=== PATIENT | male | born 1985 | race Caucasian/White ===

== ENCOUNTER → 2018-12-09 | Outpatient (CLI) | payer OTHER ==
--- NOTE | 2018-12-09 10:27 | XR ---
Right hand HISTORY: Trauma, pain 3 views of the right hand Bone mineralization, joint spaces and alignment are maintained. IMPRESSION: No fracture or dislocation is evident.
== END | disposition home or self-care (01) ==
LOC: RADXRMAIN 10:01
PROVIDERS: ATTEND Emergency Medicine
DX: S63.91XD Sprain of unspecified part of right wrist and hand, subsequent encounter (principal)

== ENCOUNTER → 2019-01-24 | Outpatient (CLI) | payer OTHER ==
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
== END | disposition home or self-care (01) ==
LOC: RADXRMAIN 17:17
PROVIDERS: ATTEND Emergency Medicine
DX: M79.641 Pain in right hand (principal)

== ENCOUNTER 2019-12-13 18:21 | Emergency (ER) | payer OTHER ==
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
[2019-12-13 19:46] LABS: Basophils # (A) 0.1 k/uL (0-0.2); Basophils % (A) 1 %; Eosinophils # (A) 0.2 k/uL (0-0.7); Eosinophils % (A) 2 %; HCT 48.4 % (39.0-53.0); HGB 16.6 gm/dL (13.0-17.5); Lymphocytes # (A) 1.4 k/uL (1.0-4.8); Lymphocytes % (A) 16 %; MCH 31.5 pg (25.0-35.0); MCHC 34.4 g/dL (31.0-37.0); MCV 91.7 fL (80.0-100.0); Mean Platelet Volume 7.2; Monocytes # (A) 0.4 k/uL (0-1.0); Monocytes % (A) 5 %; Neutrophils # (A) 6.7 k/uL (1.3-7.7); Neutrophils % (A) 76 %; Platelet Count 226 k/uL (150-450); RBC 5.27 m/uL (4.30-5.90); RDW 13.1 % (11.5-15.5); WBC 8.9 k/uL (3.8-10.6)
[2019-12-13 19:55] LABS: African American GFR (CKD) >90 (>60 ml/min/1.73 sqM); Anion Gap 14 mmol/L; Blood Urea Nitrogen 11 mg/dL (9-20); Calcium 10.1 mg/dL (8.4-10.2); Carbon Dioxide 21 mmol/L (22-30); Chloride 104 mmol/L (98-107); Glucose 143 mg/dL (74-99); Non-African American GFR(CKD) >90 (>60 ml/min/1.73 sqM); Potassium 4.4 mmol/L (3.5-5.1); Sodium 139 mmol/L (137-145)
[2019-12-13 19:57] LABS: Prothrombin Time 10.1 sec (9.0-12.0)
--- NOTE | 2019-12-13 20:06 | US ---
EXAMINATION TYPE: US venous doppler duplex UE RT DATE OF EXAM: 12/13/2019 COMPARISON: NONE CLINICAL HISTORY: pain. Pain right arm. Burning and stinging sensation right lower arm. Edema and red ness right forearm SIDE PERFORMED: right Right Arm: No evidence of DVT. Superficial thrombus noted right forearm IMPRESSION: No evidence of deep vein thrombosis in the right arm.
[2019-12-13] MEDS ORDERED: KETOROLAC 30 MG/ML 1 ML VIAL IVP STA (20:18)
[2019-12-13] MEDS ORDERED: SODIUM CHLORIDE 0.9% 500 ML 500 ML IV ONE (20:23)
[2019-12-13] MEDS ORDERED: cefTRIAXone IN SWFI 1,000 MG/10 ML SYRINGE IVP STA (20:31)
[2019-12-13 21:13] VITALS: BP 127/84; PULSE 72; RESP 18; TEMP 98.9
== END 2019-12-13 22:09 | disposition home or self-care (01) ==
LOC: EC 18:21
DX: I82.611 Acute embolism and thrombosis of superficial veins of right upper extremity (principal); E87.2 Acidosis; R50.9 Fever, unspecified; I10 Essential (primary) hypertension; Z79.899 Other long term (current) drug therapy; Z91.013 Allergy to seafood; Z91.048 Other nonmedicinal substance allergy status
CPT/HCPCS: 36415; 80048; 83605; 85025; 85610; 85730; 87040; 73090; 93971; 99284; 96374; 96375; 96361; J0696; J1885

== ENCOUNTER → 2020-09-06 | Outpatient (CLI) | payer OTHER | END | disposition home or self-care (01) | LOC: LABPAT 09:28 | PROVIDERS: ATTEND Student in an Organized Health Care Education/Training Program | DX: Z01.812 Encounter for preprocedural laboratory examination (principal); Z20.822 Contact with and (suspected) exposure to COVID-19 | CPT/HCPCS: 93005; U0003; C9803; U0005 ==

== ENCOUNTER 2020-09-14 10:02 | Day surgery (SDC) | payer OTHER ==
[2020-09-10 14:16] VITALS: BMI 26.0
[~2020-09-14 10:02] MED LIST: DEXAMETHASONE SOD PHOSPHATE 4 MG/ML 1 ML VIAL IV ONE; HEPARIN SODIUM,PORCINE/PF 5,000 UNIT/0.5 ML SYRINGE SQ PRN; HYDROmorphone 0.5 MG/0.5 ML SYRINGE IVP PRN; LACTATED RINGERS 1,000 ML IV SCH; MIDAZOLAM 2 MG/2 ML VIAL IV PRN; SCOPOLAMINE 1.5MG/72HR PATCH TRANSDERM ONE
[2020-09-14] MEDS: ONDANSETRON 4 MG/2 ML VIAL IVP ONE ×2 (10:36→13:58)
[2020-09-14 10:48] LABS: Basophils # (A) 0.1 k/uL (0-0.2); Basophils % (A) 1 %; Eosinophils # (A) 0.3 k/uL (0-0.7); Eosinophils % (A) 5 %; HCT 44.4 % (39.0-53.0); HGB 15.7 gm/dL (13.0-17.5); Lymphocytes # (A) 1.4 k/uL (1.0-4.8); Lymphocytes % (A) 24 %; MCH 32.6 pg (25.0-35.0); MCHC 35.4 g/dL (31.0-37.0); MCV 92.1 fL (80.0-100.0); Mean Platelet Volume 7.1; Monocytes # (A) 0.4 k/uL (0-1.0); Monocytes % (A) 7 %; Neutrophils # (A) 3.5 k/uL (1.3-7.7); Neutrophils % (A) 61 %; Platelet Count 214 k/uL (150-450); RBC 4.82 m/uL (4.30-5.90); RDW 13.2 % (11.5-15.5); WBC 5.7 k/uL (3.8-10.6)
[2020-09-14] MEDS ORDERED: fentaNYL (PF) 50 MCG/ML 2 ML AMP IVP ONE (10:50)
--- NOTE | 2020-09-14 11:04 | P.ANPRN ---
Procedure Note - Anesthesia - Nerve Block Performed Bilateral Erector Spinae Single Time Out Performed: Yes (1048) Date of Procedure: 09/14/20 Procedure Start Time: 10:49 Procedure Stop Time: 10:59 Location of Patient: PreOp Indication: Acute Post-Operative Pain, Analgesia, Requested by Surgeon Specifically requested for management of pain by DrMartha: Flakito Farah Sedation Type: Sedate with meaningful contact maintained Preparation: Sterile Prep Position: Prone Catheter: None Needle Types: Pajunk Needle Gauge: 21 Ultrasound used to visualize needle placement: Yes Ultrasound used to observe medication spread: Yes Injectate: Other (see comment) (40 mL 0.25% ropivacaine) Blood Aspirated: No Pain Paresthesia on Injection Noted: No Resistance on Injection: Normal Image Stored and Saved: Yes Events: Uneventful and Well Tolerated
[2020-09-14] MEDS ORDERED: ROPIVACAINE 5 MG/ML 30 ML VIAL ONE (11:31)
[2020-09-14] MEDS ORDERED: MIDAZOLAM 2 MG/2 ML VIAL ONE (11:31)
[2020-09-14] MEDS ORDERED: NEOSTIGMINE 1 MG/ML 10 ML VIAL ONE (11:31)
[2020-09-14] MEDS ORDERED: SODIUM CHLORIDE 0.9% (PF) 10 ML VIAL ONE (11:31)
[2020-09-14] MEDS ORDERED: LIDOCAINE 1% INJ 10MG/ML (20 ML MDV) ONE (11:31)
[2020-09-14] MEDS ORDERED: GLYCOPYRROLATE 0.2 MG/ML 2 ML VIAL ONE (11:31)
[2020-09-14] MEDS ORDERED: SUCCINYLCHOLINE CHLORIDE 100 MG/5 ML SYR IV ONE (11:31)
[2020-09-14] MEDS ORDERED: PROPOFOL 10 MG/ML 20 ML VIAL IV ONE (11:31)
[2020-09-14] MEDS ORDERED: ROCURONIUM 10 MG/ML (5 ML VIAL) IV ONE (11:31)
[2020-09-14] MEDS ORDERED: fentaNYL (PF) 50 MCG/ML 2 ML AMP ONE (11:31)
[2020-09-14] MEDS ORDERED: LIDOCAINE 1%-EPI 1:100,000 20 ML VIAL SQ ONE (12:10)
--- NOTE | 2020-09-14 12:55 | P.OP ---
Date of Procedure: 09/14/20 Preoperative Diagnosis: Bilateral inguinal hernia Postoperative Diagnosis: Same Procedure(s) Performed: Robotic assisted bilateral inguinal hernia repair Anesthesia: TAMERA Surgeon: Flakito Farah Estimated Blood Loss (ml): 5 Condition: stable Disposition: PACU Description of Procedure: Patient is brought operative suite remained in the supine position underwent general endotracheal anesthesia per Department of anesthesia he was prepped and draped usual sterile fashion timeout was performed correct patient correct procedure correct site was verified. An incision was made supraumbilical carried down the fascia which was incised and opened in the usual fashion under direct visualization and a millimeters port was placed in the abdomen was insufflated no injuries were noted a millimeters ports were placed under direct visualization on either side lateral to this in the robot was docked. The linda ent's placed in Trendelenburg and there was bilateral inguinal hernias noted the right side was approached first the peritoneum was taken down medially to the pubis posterior lateral to the psoas. The direct defect was reduced there was no indirect defect noted. A similar dissection was carried out on the left side. Both meshes were placed and overlapped a stitch 3-0 Vicryl was used to suture them in place just superior to the pubis. The peritoneum was then closed using 3-0 v-locked sutures. The sutures were removed and the midline fascia was closed with 8 of a Cleve-Jhonatan suture passer with 3-0 Vicryl. The other ports removed under direct visualization the abdomen was desufflated. Skin was closed with 4-0 Monocryl subcuticular stitches and skin glue. Patient tolerated the procedure well there are no apparent complications Plan - Discharge Summary Discharge Rx Participant: No New Discharge Prescriptions: No Action lisinopriL [Zestril] 5 mg PO QAM Omeprazole 40 mg PO DAILY Penicillin V Potassium [Pen Vee K] 500 mg PO QID Discharge Medication List Omeprazole 40 mg PO DAILY 07/01/18 [History] lisinopriL [Zestril] 5 mg PO QAM 07/01/18 [History] Penicillin V Potassium [Pen Vee K] 500 mg PO QID 09/10/20 [History]
[2020-09-14 13:12] VITALS: TEMP 97.1
[2020-09-14] MEDS: HYDROmorphone 1 MG/ML 1 ML SYRINGE IVP ONE ×2 (13:19→13:35)
[2020-09-14 13:21] VITALS: RESP 16
[2020-09-14] MEDS ORDERED: HYDROcodone/APAP 5-325MG 1 EACH TAB ONE (16:27)
[2020-09-14] MEDS ORDERED: HYDROcodone/APAP 5-325MG 1 EACH TAB PO ONE (16:31)
[2020-09-14 16:35] VITALS: BP 122/69; PULSE 68
== END 2020-09-14 18:21 | disposition home or self-care (01) ==
LOC: OR 10:02
PROVIDERS: ATTEND Student in an Organized Health Care Education/Training Program
DX: K40.20 Bilateral inguinal hernia, without obstruction or gangrene, not specified as recurrent (principal); I10 Essential (primary) hypertension; Z86.718 Personal history of other venous thrombosis and embolism; Z98.890 Other specified postprocedural states; Z90.5 Acquired absence of kidney; Z80.1 Family history of malignant neoplasm of trachea, bronchus and lung; Z80.0 Family history of malignant neoplasm of digestive organs; Z82.49 Family history of ischemic heart disease and other diseases of the circulatory system; Z82.5 Family history of asthma and other chronic lower respiratory diseases; Z79.899 Other long term (current) drug therapy; Z91.013 Allergy to seafood; Z91.048 Other nonmedicinal substance allergy status
CPT/HCPCS: 49650; S2900; 64999; 85025

== ENCOUNTER 2022-11-26 19:48 | Observation (INO) | payer OTHER ==
[2022-11-26] MEDS ORDERED: VANCOMYCIN IV PER PHARMACY 1 EACH MISC MISCELLANE PRN (20:26)
[2022-11-26 21:05] LABS: Basophils % (A) 1 %; Eosinophils # (A) 0.3 k/uL (0-0.7); Eosinophils % (A) 5 %; HCT 43.8 % (39.0-53.0); HGB 15.2 gm/dL (13.0-17.5); Lymphocytes # (A) 1.8 k/uL (1.0-4.8); Lymphocytes % (A) 28 %; MCHC 34.7 g/dL (31.0-37.0); MCV 94.9 fL (80.0-100.0); Mean Platelet Volume 7.5; Monocytes # (A) 0.4 k/uL (0-1.0); Monocytes % (A) 7 %; Neutrophils # (A) 3.6 k/uL (1.3-7.7); Neutrophils % (A) 57 %; Platelet Count 221 k/uL (150-450); RBC 4.62 m/uL (4.30-5.90); RDW 13.4 % (11.5-15.5); WBC 6.2 k/uL (3.8-10.6)
[2022-11-26] MEDS ORDERED: VANCOMYCIN 1,500 MG in SODIUM CHLORIDE 0.9% 500 ML 500 ML IVPB ONE (21:15)
[2022-11-26] MEDS ORDERED: KETOROLAC 15 MG/ML 1 ML VIAL IVP STA (21:16)
[2022-11-26 21:19] LABS: ALT 22 U/L (4-49); AST 23 U/L (17-59); African American GFR (CKD) >90 (>60 ml/min/1.73 sqM); Albumin 4.4 g/dL (3.5-5.0); Alkaline Phosphatase 59 U/L (38-126); Anion Gap 10 mmol/L; Blood Urea Nitrogen 14 mg/dL (9-20); Calcium 9.6 mg/dL (8.4-10.2); Carbon Dioxide 23 mmol/L (22-30); Chloride 106 mmol/L (98-107); Glucose 117 mg/dL (74-99); Non-African American GFR(CKD) >90 (>60 ml/min/1.73 sqM); Potassium 4.4 mmol/L (3.5-5.1); Sodium 139 mmol/L (137-145); Total Bilirubin 0.7 mg/dL (0.2-1.3); Total Protein 7.5 g/dL (6.3-8.2)
--- NOTE | 2022-11-26 21:20 | ED ---
Extremity Problem HPI - General Chief complaint: Extremity Problem,Nontraumatic Stated complaint: left leg infection Time Seen by Provider: 11/26/22 20:19 Source: patient Mode of arrival: ambulatory Limitations: no limitations - History of Present Illness Initial comments: 37-year-old male with history of venous stasis ulcers presenting with chief complaint of worsening wound to the left lower extremity. Patient states has been having increased purulent discharge for several days. He was seen by his vascular surgeon Dr. Ruiz 2 days ago in the office, he urge the patient to present to the ER. Patient states due to complex was work he was unable to present until today. Patient denies fevers or chills. He admits to a 6 out of 10 pain. No nausea or vomiting. No numbness or tingling. - Related Data Home Medications Medication Instructions Recorded Confirmed Omeprazole 40 mg PO DAILY 07/01/18 11/27/22 lisinopriL [Zestril] 5 mg PO QAM 07/01/18 11/27/22 Penicillin V Potassium [Pen Vee K] 500 mg PO QID 09/10/20 09/14/20 Previous Rx's Medication Instructions Recorded Docusate [Colace] 100 mg PO DAILY 10 Days #10 capsule 09/14/20 HYDROcodone/APAP 5-325MG [[place] 1 tab PO Q6HR PRN 3 Days #12 tab 09/14/20 5-325] Allergies Allergy/AdvReac Type Severity Reaction Status Date / Time shellfish derived Allergy Severe Anaphylaxis Verified 09/14/20 10:17 iodine Allergy Anaphylaxis Verified 09/14/20 10:17 Review of Systems ROS Statement: Those systems with pertinent positive or pertinent negative responses have been documented in the HPI. ROS Other: All systems not noted in ROS Statement are negative. Past Medical History Past Medical History: Diabetes Mellitus, Deep Vein Thrombosis (DVT) Additional Past Medical History / Comment(s): born with one kidney. stent to ab domen iliac bilat History of Any Multi-Drug Resistant Organisms: None Reported Past Surgical History: Orthopedic Surgery Additional Past Surgical History / Comment(s): RT wrist surgery Past Psychological History: No Psychological Hx Reported Smoking Status: Never smoker - Past Family History Father Family Medical History: Cancer Mother Family Medical History: Congestive Heart Failure (CHF), COPD General Exam Limitations: no limitations General appearance: alert, in no apparent distress Head exam: Present: atraumatic, normocephalic, normal inspection Eye exam: Present: normal appearance Neck exam: Present: normal inspection, full ROM Respiratory exam: Present: normal lung sounds bilaterally. Absent: respiratory distress, wheezes, rales, rhonchi, stridor Cardiovascular Exam: Present: regular rate, normal rhythm, normal heart sounds. Absent: systolic murmur, diastolic murmur, rubs, gallop, clicks Neurological exam: Present: alert, oriented X3, CN II-XII intact Psychiatric exam: Present: normal affect, normal mood Skin exam: Present: other (Ulceration with purulent discharge and surrounding erythema). Absent: intact, normal color Course Vital Signs 11/26/22 11/26/22 19:50 22:25 Temperature 98.6 F Pulse Rate 76 61 Respiratory 20 18 Rate Blood Pressure 121/75 115/78 O2 Sat by Pulse 96 94 L Oximetry Medical Decision Making - Medical Decision Making Was pt. sent in by a medical professional or institution (, PA, CHEMICAL PROCESSING LABORER, urgent care, hospital, or prison...) When possible be specific @ -No Did you speak to anyone other than the patient for history (EMS, parent, family, police, friend...)? What history was obtained from this source @ -No Did you review nursing and triage notes (agree or disagree)? Why? @ -I reviewed and agree with nursing and triage notes Were old charts reviewed (outside hosp., previous admission, EMS record, old EKG, old radiological studies, urgent care reports/EKG's, prison records)? Report findings @ -No old charts were reviewed Differential Diagnosis (chest pain, altered mental status, abdominal pain women, abdominal pain men, vaginal bleeding, weakness, fever, dyspnea, syncope, headache, dizziness, GI bleed, back pain, seizure, CVA, palpatations, mental health, musculoskeletal)? @ -Differential includes cellulitis, abscess, osteomyelitis, this is not an all inclusive list EKG interpreted by me (3pts min.). @ -As above X-rays interpreted by me (1pt min.). @ -X-ray shows no fracture or dislocation as well as no evidence of osteomyelitis CT interpreted by me (1pt min.). @ -None done U/S interpreted by me (1pt. min.). @ -None done What testing was considered but not performed or refused? (CT, X-rays, U/S, labs)? Why? @ -None What meds were considered but not given or refused? Why? @ -None Did you discuss the management of the patient with other professionals (professionals i.e. , PA, CHEMICAL PROCESSING LABORER, lab, RT, psych nurse, social group worker, hydro station supervisor, teacher, chief analytics officer, showcase trimmer)? Give summary @ -I spoke with Dr. Holden who accepted admission Was smoking cessation discussed for >3mins.? @ -No Was critical care preformed (if so, how long)? @ -No Were there social determinants of health that impacted care today? How? (Homelessness, low income, unemployed, alcoholism, drug addiction, t ransportation, low edu. Level, literacy, decrease access to med. care, fdc, rehab)? @ -No Was there de-escalation of care discussed even if they declined (Discuss DNR or withdrawal of care, Hospice)? DNR status @ -No What co-morbidities impacted this encounter? (DM, HTN, Smoking, COPD, CAD, Cancer, CVA, ARF, Chemo, Hep., AIDS, mental health diagnosis, sleep apnea, morbid obesity)? @ -None Was patient admitted / discharged? Hospital course, mention meds given and route, prescriptions, significant lab abnormalities, going to OR and other pertinent info. @ -37-year-old male presenting with chief complaint of infection to the left lower leg. Patient has a pre-existing venous-stasis ulcer which has been expressing increasing purulent drainage. Patient was told to come to the ER by his vascular surgeon. On physical examination the wound is malodorous and a ppears to need debridement. Lab work shows no leukocytosis. X-rays negative for osteomyelitis. Patient is started on vancomycin. He will be admitted. He is agreeable with this plan. I discussed this case with my attending Dr. Richmond Undiagnosed new problem with uncertain prognosis? @ -No Drug Therapy requiring intensive monitoring for toxicity (Heparin, Nitro, Insulin, Cardizem)? @ -No Were any procedures done? @ -No Diagnosis/symptom? @ -Cellulitis Acute, or Chronic, or Acute on Chronic? @ -Acute Uncomplicated (without systemic symptoms) or Complicated (systemic symptoms)? @ -Complicated Side effects of treatment? @ -No Exacerbation, Progression, or Severe Exacerbation? @ -No Poses a threat to life or bodily function? How? (Chest pain, [place], [place], pneumonia, PE, COPD, DKA, ARF, appy, cholecystitis, CVA, Diverticulitis, Homicidal, Suicidal, threat to staff... and all critical care pts) @ -Yes - Lab Data Result diagrams: 11/26/22 20:41 11/26/22 20:41 Lab Results 11/26/22 11/26/22 11/26/22 Range/Units 20:41 20:41 20:41 WBC 6.2 (3.8-10.6) k/uL RBC 4.62 (4.30-5.90) m/uL Hgb 15.2 (13.0-17.5) gm/dL Hct 43.8 (39.0-53.0) % MCV 94.9 (80.0-100.0) fL MCH 33.0 (25.0-35.0) pg MCHC 34.7 (31.0-37.0) g/dL RDW 13.4 (11.5-15.5) % Plt Count 221 (150-450) k/uL MPV 7.5 Neutrophils % 57 % Lymphocytes % 28 % Monocytes % 7 % Eosinophils % 5 % Basophils % 1 % Neutrophils # 3.6 (1.3-7.7) k/uL Lymphocytes # 1.8 (1.0-4.8) k/uL Monocytes # 0.4 (0-1.0) k/uL Eosinophils # 0.3 (0-0.7) k/uL Basophils # 0.0 (0-0.2) k/uL Sodium 139 (137-145) mmol/L Potassium 4.4 (3.5-5.1) mmol/L Chloride 106 (98-107) mmol/L Carbon Dioxide 23 (22-30) mmol/L Anion Gap 10 mmol/L BUN 14 (9-20) mg/dL Creatinine 0.91 (0.66-1.25) mg/dL Est GFR (CKD-EPI)AfAm >90 (>60 ml/min/1.73 sqM) Est GFR (CKD-EPI)NonAf >90 (>60 ml/min/1.73 sqM) Glucose 117 H (74-99) mg/dL Plasma Lactic Acid Prakash 1.1 (0.7-2.0) mmol/L Calcium 9.6 (8.4-10.2) mg/dL Total Bilirubin 0.7 (0.2-1.3) mg/dL AST 23 (17-59) U/L ALT 22 (4-49) U/L Alkaline Phosphatase 59 (38-126) U/L Total Protein 7.5 (6.3-8.2) g/dL Albumin 4.4 (3.5-5.0) g/dL Disposition Clinical Impression: Cellulitis Disposition: ADMITTED IP TO THIS HOSP Condition: Fair Time of Disposition: 22:11
--- NOTE | 2022-11-26 21:40 | XR ---
EXAMINATION TYPE: XR tibia fibula LT DATE OF EXAM: 11/26/2022 9:29 PM INDICATION: Patient age:Male; 37 years old; Reason for study: wound; COMPARISON: None TECHNIQUE: The left tibia/fibula was examined in AP and lateral projections. FINDINGS: No evidence of any acute osseous pathology, joint dislocation, or soft tissue swelling is n oted. No radiopaque foreign body. No evidence for osseous erosion. IMPRESSION: 1. No evidence of acute fracture. 2. No radiopaque foreign body or osseous erosion.
[2022-11-26] MEDS ORDERED: KETOROLAC 15 MG/ML 1 ML VIAL IVP PRN (22:10)
[2022-11-26] MEDS ORDERED: MORPHINE SULFATE 4 MG/ML SYRINGE IV PRN (22:10)
[2022-11-26] MEDS ORDERED: NALOXONE 0.4 MG/ML 1 ML VIAL IV PRN (22:10)
[2022-11-26] MEDS ORDERED: IBUPROFEN 400 MG TAB PO PRN (22:10)
[2022-11-27] MEDS: SODIUM CHLORIDE 0.9% 1,000 ML IV SCH ×2 (01:30→12:24)
[2022-11-27] MEDS: VANCOMYCIN 1,500 MG in SODIUM CHLORIDE 0.9% 500 ML 500 ML IVPB SCH ×2 (06:08→13:44)
[2022-11-27 07:46] VITALS: RESP 20
[2022-11-27] MEDS ORDERED: DEXTROSE 50% SYRINGE 50 ML IVP PRN ×2 (10:27)
[2022-11-27] MEDS ORDERED: PANTOPRAZOLE 40 MG/10 ML VIAL IVP SCH (10:30)
--- NOTE | 2022-11-27 10:55 | P.HPIM ---
History of Present Illness H&P Date: 11/27/22 Chief Complaint: Left leg wound This is a 37-year-old gentleman with a past medical history significant for renal agenesis ,previous iliac stents placed at [facility] ,pre-existing venous stasis ulcer of the left lower extremity, follows in the wound care center with , last visit 10/24/2021. Reports he followed up in the office with Dr. Ruiz on Sunday related to increased purulent drainage with pain/"burning sensation" left lower extremity ulcer, not responding to Keflex and was instructed to proceed to the [facility] . Presented to [facility] ER with reported left lower venous stasis ulcer, open area reported 2 x 2 with discoloration approximately 6 x 4. Denies numbness or tingling. Denies chest pain, palpitations or shortness of breath. Denies nausea or vomiting.Denies lightheadedness, dizziness or focal deficits. Radiology studies reporting negative for osteomyelitis afebrile, normal WBC. Vital signs stable, maintaining O2 sats in the 90s on room air. Review of Systems ROS Statement: Those systems with pertinent positive or pertinent negative responses have been documented in the HPI. ROS Other: All systems not noted in ROS Statement are negative. Past Medical History Past Medical History: Diabetes Mellitus, Deep Vein Thrombosis (DVT) Additional Past Medical History / Comment(s): born with one kidney. stent to abdomen iliac bilat History of Any Multi-Drug Resistant Organisms: None Reported Past Surgical History: Orthopedic Surgery Additional Past Surgical History / Comment(s): RT wrist surgery Past Psychological History: No Psychological Hx Reported Smoking Status: Never smoker - Past Family History Father Family Medical History: Cancer Mother Family Medical History: Congestive Heart Failure (CHF), COPD Medications and Allergies Home Medications Medication Instructions Recorded Confirmed Type lisinopriL [Zestril] 5 mg PO DAILY 07/01/18 11/27/22 History Apixaban [Eliquis] 5 mg PO BID 11/27/22 11/27/22 History Doxycycline [Vibramycin] 100 mg PO BID 10 Days #20 capsule 11/27/22 Rx Famotidine [Pepcid] 20 mg PO BID #60 tablet 11/27/22 Rx Allergies Allergy/AdvReac Type Severity Reaction Status Date / Time shellfish derived Allergy Severe Anaphylaxis Verified 11/27/22 08:27 iodine Allergy Anaphylaxis Verified 11/27/22 08:27 Physical Exam Vitals: Vital Signs Temp Pulse Pulse Resp BP BP Pulse Ox 11/27/22 07:45 97.8 F 62 20 116/71 94 L 11/27/22 01:27 97.9 F 60 16 109/69 94 L 11/26/22 23:02 97.5 F L 60 16 135/89 95 11/26/22 22:25 61 18 115/78 94 L 11/26/22 19:50 98.6 F 76 20 121/75 96 Intake and Output 11/26/22 11/27/22 11/27/22 22:59 06:59 14:59 Intake Total 1200 Balance 1200 Intake: Intake, IV Titration 900 Amount Sodium Chloride 0.9% 1, 400 000 ml @ 75 mls/hr IV . [id number] FRANCISCO Rx#:[id number] Vancomycin 1,500 mg In 500 Sodium Chloride 0.9% 500 ml 500 ml @ 167 mls/hr IVPB Q8H FRANCISCO Rx#: [id number] Oral 300 Other: # Voids 2 Weight 87.543 kg 87.543 kg PHYSICAL EXAM: VITAL SIGNS: [As above] GENERAL: Sitting up in bed, no acute distress HEENT: Normocephalic,Conjunctivae normal. eyes normal. NECK: No JVD. No thyroid enlargement. No LNs CARDIOVASCULAR: S1, S2 regular.. No murmur RESPIRATION: Breath sounds diminished in the bases. No rhonchi or crackles. No bronchial breathing. ABDOMEN: Soft, nontender . No guarding. no masses palpable. No ascites, No hepatosplenomegaly.Bowel sounds heard. LEGS: Tender Left lower extremity ulceration, erythema, warmth, purulent discharge, odiferous. PSYCHIATRY: Alert and oriented X3, mood and affect normal. NERVOUS SYSTEM: Cranial N 2-12 grossly normal. No focal deficits. Strength and sensation grossly intact. Skin: Warm and dry Results CBC & Chem 7: 11/26/22 20:41 11/27/22 11:15 Labs: Abnormal Lab Results - Last 24 Hours (Table) 11/26/22 Range/Units 20:41 Glucose 117 H (74-99) mg/dL Thrombosis Risk Factor Assmnt - Choose All That Apply Any of the Below Risk Factors Present?: Yes Each Factor Represents 1 point: Obesity (BMI >25), Swollen legs (current) Other Risk Factors: No Each Risk Factor Represents 3 Points: History of DVT/PE Other congenital or acquired thrombophilia - If yes, enter type in comment: No Thrombosis Risk Factor Assessment Total Risk Factor Score: 5 Thrombosis Risk Factor Assessment Level: High Risk Assessment and Plan Assessment: Infected pre-existing venous stasis ulcer of left lower extremity with celluli tis History of DVT on Eliquis Renal agenesis Diabetes mellitus, hemoglobin A1c pending Plan: Continue on current medication regime ,monitoring and symptomatic treatment. Infectious disease consulted for antibiotic regimen due to patient with renal agenesis.close monitoring of renal function.Stat BMP ordered. maintain gentle IV fluid hydration .Pictures/actual measurements ordered of the wound.Stat wound cultures ordered. Blood cultures in progress. Eliquis placed on hold for potential debridement, resume pending clearance from vascular surgery. Tight blood sugar control with close monitoring of blood sugars, NovoLog sliding scale , hemoglobin A1c ordered.PPI ordered for GI prophylaxis .Vascular surgeon Dr. Ruiz consult in place, recommendations pending. The impression and plan of care has been dictated as directed. : I performed a history and examination of this patient, discussed the same with the dictator. I agree with the dictator's note ,documented as a scribe. Any additional findings or plans will be noted.
[2022-11-27 11:54] LABS: African American GFR (CKD) >90 (>60 ml/min/1.73 sqM); Anion Gap 5 mmol/L; Blood Urea Nitrogen 16 mg/dL (9-20); Calcium 8.7 mg/dL (8.4-10.2); Carbon Dioxide 24 mmol/L (22-30); Chloride 109 mmol/L (98-107); Glucose 101 mg/dL (74-99); Non-African American GFR(CKD) 86 (>60 ml/min/1.73 sqM); Potassium 4.5 mmol/L (3.5-5.1); Sodium 138 mmol/L (137-145)
[2022-11-27 12:04] LABS: Glucose,Whole Blood 102 mg/dL (70-110)
[2022-11-27] MEDS: INSULIN ASPART (NovoLOG) 100 UNIT/ML VIAL SQ SCH ×2 (12:23→18:01)
--- NOTE | 2022-11-27 12:35 | P.GSCN ---
History of Present Illness History of present illness: 37-year-old gentleman well known to me from the past patient has a long-standing history of venous hypertension and also patient to has history of 4 venous ulcer left ankle medial aspect patient has history of 4 DVT. We treated this gentleman in the wound clinic he was not responding to the local wound care. Patient was sent to [facility] there is had extensive procedure done including a iliac stents and a some balloon angioplasty of the venous system. Patient came to my office he developed a recurrent ulcer on the left lower lower ankle with some Brown induration no fever or chills and white count is normal I advised him to go to your family rechecked to make sure he his iliac vein and artery are patent and a he should see the intervention radiologist who did all t hose procedure patient could not go there C came to the emergency room Medical history history of diabetes history of chronic venous hypertension On examination patient was seen in his room is laying comfortably in bed Neck is supple no bruit appreciated Chest is clear good entry both lungs first and second sound normal Abdomen is soft nontender Scrotal femoral or palpable bilateral dorsal pedis 1+ patient has a Brown induration of the lower extremity at the ankle and there is a venous stasis ulcer measurement is 6 x 4 cm Plan is I started him on medihoney gel and we will change her dressing daily Eschen may need a Unna boot or failure wrap with local wound care we'll follow with you Past Medical History Past Medical History: Diabetes Mellitus, Deep Vein Thrombosis (DVT) Additional Past Medical History / Comment(s): born with one kidney. stent to abdomen iliac bilat History of Any Multi-Drug Resistant Organisms: None Reported Past Surgical History: Orthopedic Surgery Additional Past Surgical History / Comment(s): RT wrist surgery Past Psychological History: No Psychological Hx Reported Smoking Status: Never smoker - Past Family History Father Family Medical History: Cancer Mother Family Medical History: Congestive Heart Failure (CHF), COPD Medications and Allergies Home Medications Medication Instructions Recorded Confirmed Type lisinopriL [Zestril] 5 mg PO DAILY 07/01/18 11/27/22 History Apixaban [Eliquis] 5 mg PO BID 11/27/22 11/27/22 History Cephalexin [Keflex] 500 mg PO TID 11/27/22 11/27/22 History Allergies Allergy/AdvReac Type Severity Reaction Status Date / Time shellfish derived Allergy Severe Anaphylaxis Verified 11/27/22 08:27 iodine Allergy Anaphylaxis Verified 11/27/22 08:27 Surgical - Exam Vital Signs Temp Pulse Resp BP Pulse Ox 98.6 F 76 20 121/75 96 11/26/22 19:50 11/26/22 19:50 11/26/22 19:50 11/26/22 19:50 11/26/22 19:50 Results - Labs 11/26/22 20:41 11/27/22 11:15 Abnormal Lab Results - Last 24 Hours (Table) 11/26/22 11/27/22 Range/Units 20:41 11:15 Chloride 109 H (98-107) mmol/L Glucose 117 H 101 H (74-99) mg/dL Diabetes panel 11/26/22 11/27/22 Range/Units 20:41 11:15 Sodium 139 138 (137-145) mmol/L Potassium 4.4 4.5 (3.5-5.1) mmol/L Chloride 106 109 H (98-107) mmol/L Carbon Dioxide 23 24 (22-30) mmol/L BUN 14 16 (9-20) mg/dL Creatinine 0.91 1.08 (0.66-1.25) mg/dL Glucose 117 H 101 H (74-99) mg/dL Calcium 9.6 8.7 (8.4-10.2) mg/dL AST 23 (17-59) U/L ALT 22 (4-49) U/L Alkaline Phosphatase 59 (38-126) U/L Total Protein 7.5 (6.3-8.2) g/dL Albumin 4.4 (3.5-5.0) g/dL Calcium panel 11/26/22 11/27/22 Range/Units 20:41 11:15 Calcium 9.6 8.7 (8.4-10.2) mg/dL Albumin 4.4 (3.5-5.0) g/dL Pituitary panel 11/26/22 11/27/22 Range/Units 20:41 11:15 Sodium 139 138 (137-145) mmol/L Potassium 4.4 4.5 (3.5-5.1) mmol/L Chloride 106 109 H (98-107) mmol/L Carbon Dioxide 23 24 (22-30) mmol/L BUN 14 16 (9-20) mg/dL Creatinine 0.91 1.08 (0.66-1.25) mg/dL Glucose 117 H 101 H (74-99) mg/dL Calcium 9.6 8.7 (8.4-10.2) mg/dL Adrenal panel 11/26/22 11/27/22 Range/Units 20:41 11:15 Sodium 139 138 (137-145) mmol/L Potassium 4.4 4.5 (3.5-5.1) mmol/L Chloride 106 109 H (98-107) mmol/L Carbon Dioxide 23 24 (22-30) mmol/L BUN 14 16 (9-20) mg/dL Creatinine 0.91 1.08 (0.66-1.25) mg/dL Glucose 117 H 101 H (74-99) mg/dL Calcium 9.6 8.7 (8.4-10.2) mg/dL Total Bilirubin 0.7 (0.2-1.3) mg/dL AST 23 (17-59) U/L ALT 22 (4-49) U/L Alkaline Phosphatase 59 (38-126) U/L Total Protein 7.5 (6.3-8.2) g/dL Albumin 4.4 (3.5-5.0) g/dL
[2022-11-27] MEDS ORDERED: APIXABAN 5 MG TAB PO SCH (12:45)
[2022-11-27 12:55] VITALS: BP 121/74; PULSE 72; TEMP 98.6
--- NOTE | 2022-11-27 14:25 | P.DS ---
Providers Date of admission: 11/26/22 21:55 Expected date of discharge: 11/27/22 Attending physician: Tuan Holden Consults: 11/26/22 22:10 Consult Physician Urgent Consulting Provider: Sanford Ruiz Consult Reason/Comments: venous stasis ulcer Do you want consulting provider notified?: Yes, Notify in am 11/27/22 10:52 Consult Physician Routine Consulting Provider: Dolores Flores Consult Reason/Comments: antibx, renal agenesis Do you want consulting provider notified?: Yes Primary care physician: [facility] Course: Final Diagnoses: Infected pre-existing venous stasis ulcer of left lower extremity with cellulitis History of DVT on Eliquis Renal agenesis Diabetes mellitus, hemoglobin A1c pending Hospital course:This is a 37-year-old gentleman with a past medical history significant for renal agenesis ,previous iliac stents placed at [facility] ,pre- existing venous stasis ulcer of the left lower extremity, follows in the wound care center with , last visit 10/24/2021. Reports he followed up in the office with Dr. Ruiz on Sunday related to increased purulent drainage with pain/"burning sensation" left lower extremity ulcer, not responding to Keflex and was [facility] Presented to [facility] ER with reported left lower venous stasis ulcer, open area reported 2 x 2 with discoloration approximately 6 x 4. Denies numbness or tingling. Denies chest pain, palpitations or shortness of breath. Denies nausea or vomiting.Denies lightheadedness, dizziness or focal deficits. Radiology studies reporting nega tive for osteomyelitis afebrile, normal WBC. Vital signs stable, maintaining O2 sats in the 90s on room air. Blood and WoundCultures obtained, evaluated by infectious disease. No debridement planned as per vascular surgery. Patient will be discharged home today in a stable condition with guarded prognosis pending final DC clearance/Wound Care per vascular surgery. Antibiotics of doxycycline at DC as recommended per ID. The impression and plan of care has been dictated as directed. : I performed a history and examination of this patient, discussed the same with the dictator. I agree with the dictator's note ,documented as a scribe. Any additional findings or plans will be noted. Patient Condition at Discharge: Stable Plan - Discharge Summary Discharge Rx Participant: No New Discharge Prescriptions: New Famotidine [Pepcid] 20 mg PO BID #60 tablet Doxycycline [Vibramycin] 100 mg PO BID 10 Days #20 capsule Discontinued Cephalexin [Keflex] 500 mg PO TID No Action lisinopriL [Zestril] 5 mg PO DAILY Apixaban [Eliquis] 5 mg PO BID Discharge Medication List lisinopriL [Zestril] 5 mg PO DAILY 07/01/18 [History] Apixaban [Eliquis] 5 mg PO BID 11/27/22 [History] Doxycycline [Vibramycin] 100 mg PO BID 10 Days #20 capsule 11/27/22 [Rx] Famotidine [Pepcid] 20 mg PO BID #60 tablet 11/27/22 [Rx] Follow up Appointment(s)/Referral(s): Tuan Holden Jr, DO [Primary Care Provider] - 3 Days Sanford Ruiz MD [STAFF PHYSICIAN] - 1 Week (At [facility]) Ambulatory/Diagnostic Orders: Basic Metabolic Panel [LAB.AMB] Time Frame: 3 Days, Location: None Selected
[2022-11-27 17:03] LABS: Glucose,Whole Blood 115 mg/dL (70-110)
[2022-11-28] MEDS ORDERED: VANCOMYCIN TROUGH DUE 1 EACH MISC MISCELLANE ONE (05:00)
== END 2022-11-27 19:11 | disposition home or self-care (01) ==
LOC: EC 19:48 → 5NMEDONC 21:55
PROVIDERS: ADMIT Family Medicine; ATTEND Family Medicine
DX: L03.116 Cellulitis of left lower limb (principal); I87.312 Chronic venous hypertension (idiopathic) with ulcer of left lower extremity; L97.329 Non-pressure chronic ulcer of left ankle with unspecified severity; E11.51 Type 2 diabetes mellitus with diabetic peripheral angiopathy without gangrene; Q60.0 Renal agenesis, unilateral; E66.9 Obesity, unspecified; Z68.26 Body mass index [BMI] 26.0-26.9, adult; Z79.01 Long term (current) use of anticoagulants; Z79.899 Other long term (current) drug therapy; Z91.013 Allergy to seafood; Z91.048 Other nonmedicinal substance allergy status; Z86.718 Personal history of other venous thrombosis and embolism; Z95.820 Peripheral vascular angioplasty status with implants and grafts; Z98.890 Other specified postprocedural states; Z86.711 Personal history of pulmonary embolism; Z82.49 Family history of ischemic heart disease and other diseases of the circulatory system; Z82.5 Family history of asthma and other chronic lower respiratory diseases; Z80.9 Family history of malignant neoplasm, unspecified
CPT/HCPCS: 96361; 96366 ×2; 96375 ×2; 96365; 99284; 36415; 80053; 80048; 83605; 85025; 87040; 87070; 87205; 87075; 83036; 73590; G0378 ×2; J3370 ×2; J1885; C9113

== ENCOUNTER → 2022-11-30 | Outpatient (CLI) | payer OTHER ==
[2022-11-30 20:02] LABS: Blood Urea Nitrogen 9.2 mg/dL (9.0-27.0); Calcium 10.1 mg/dL (8.7-10.3); Carbon Dioxide 24.7 mmol/L (21.6-31.8); Chloride 105 mmol/L (96-109); Glucose 87 mg/dL (70-110); Potassium 4.5 mmol/L (3.5-5.5); Sodium 143 mmol/L (135-145)
[2022-11-30 20:19] LABS: HCT 45.2 % (39.6-50.0); HGB 15.2 d/dL (12.0-15.0); MCH 31.7 pg (27.0-32.0); MCHC 33.6 d/dL (32.0-37.0); MCV 94.2 FL (80.0-97.0); Mean Platelet Volume 9.6 FL (9.5-12.2); NRBC Per 100 WBC 0 X 10*3/uL (0.00-0.01); Platelet Count 229 X 10*3/uL (140-440); RDW 13.1 % (11.5-14.5); WBC 5.72 X 10*3/uL (4.50-10.00)
== END | disposition home or self-care (01) ==
LOC: LABWHC1 13:45
PROVIDERS: ATTEND Nurse Practitioner
DX: L03.90 Cellulitis, unspecified (principal)
CPT/HCPCS: 36415; 80048; 85027